=== PATIENT | male | born 1995 | race Caucasian/White ===

== ENCOUNTER 2019-11-21 15:07 | Emergency (ER) | payer SELFPAY, OTHER ==
[~2019-11-21] VITALS: Ht 182.9 cm; Wt 80.0 kg
[~2019-11-21 15:07] MED LIST: epiNEPHrine 0.1mg/ml 10ml syringe ONE; etomidate 2mg/ml inj. ONE; rocuronium 10mg/ml inj IV ONE
[2019-11-21] MEDS ORDERED: LORazepam 2 mg/ml vial ONE (15:11)
[2019-11-21] MEDS ORDERED: midazolam 100mg in NS 100ml 100 ML IV SCH (15:20)
[2019-11-21] MEDS ORDERED: FENTANYL-0.9 % NACL/PF 100 ML IV SCH (15:20)
[2019-11-21] MEDS ORDERED: NORepinephrine 8mg/ 250ml NS 250 ML IV SCH (15:20)
[2019-11-21] MEDS ORDERED: acetaminophen 650mg rectal suppository RC STA (15:33)
[2019-11-21] MEDS ORDERED: normal saline 1000ML IV soln IV ONE (15:35)
[2019-11-21] MEDS ORDERED: vancomycin/NS 1 GM ADD-VANTAGE 250 ML IV ONE (15:35)
[2019-11-21] MEDS ORDERED: piperacillin/tazo 3.375gm/50ml 50 ML IV ONE (15:35)
[2019-11-21 15:55] LABS: ABG BASE EXCESS -6.1 mmol/L (-2.0-2.0); ABG HCO3 19.4 mmol/L (22.0-26.0); ABG OXYGEN SATURATION 99.3 % (94-97); ABG PCO2 (T) 40.6 mmHg (35.0-48.0); ABG PO2 (T) 463.8 mmHg (75.0-100.0); ALLEN'S TEST POSITIVE; FCOHb 1.2 % (0.0-3.9); FMetHb 0.3 % (0.0-1.5); FO2Hb 97.8 % (94-97); PATIENT TEMPERATURE 38.4; PEEP 5 cm H2O; RESPIRATORY RATE 18 b/min; TIDAL VOLUME 450 mL; TOTAL HEMOGLOBIN 12.7 G/dl (14.0-18.0)
[2019-11-21 15:59] LABS: ALANINE AMINOTRANSFERASE 69 U/L (12-78); ALBUMIN 3.6 G/DL (3.4-5.0); ALBUMIN/GLOBULIN RATIO 1.2 (1.1-1.5); ALKALINE PHOSPHATASE 45 IU/L (46-116); ANION GAP 12 (8-16); ASPARTATE AMINO TRANSFERASE 172 U/L (10-37); BASOPHILS # (AUTO) 0.1 X10'3 (0-0.2); BASOPHILS % (AUTO) 0.7 % (0-1); BILIRUBIN,TOTAL 0.3 MG/DL (0.1-1.0); BLOOD UREA NITROGEN 21 MG/DL (7-18); BUN/CREATININE RATIO 7.6 (5.4-32.0); CALCIUM 8.1 MG/DL (8.5-10.1); CHLORIDE 109 MMOL/L (99-107); CREATININE 2.76 MG/DL (0.60-1.10); EOSINOPHILS # (AUTO) 0.1 X10'3 (0-0.9); EOSINOPHILS % (AUTO) 0.4 % (0-6); GLUCOSE 116 MG/DL (70-104); HEMATOCRIT 41.6 % (42.0-52.0); LYMPHOCYTES # (AUTO) 0.8 X10'3 (1.1-4.8); LYMPHOCYTES % (AUTO) 4.5 % (21-51); MEAN CORPUSCULAR HEMOGLOBIN 31.6 PG (27.0-31.0); MEAN CORPUSCULAR HGB CONC 33.5 g/dL (33.0-36.5); MEAN CORPUSCULAR VOLUME 94.4 FL (78-98); MEAN PLATELET VOLUME 8.3 FL (7.4-10.4); MONOCYTES # (AUTO) 0.6 X10'3 (0-0.9); MONOCYTES % (AUTO) 3.3 % (2-12); NEUTROPHILS # (AUTO) 16.4 X10'3 (1.8-7.7); NEUTROPHILS % (AUTO) 91.1 % (42-75); PLATELET COUNT 270 X10'3 (140-440); POTASSIUM 4.7 MMOL/L (3.5-5.1); RED BLOOD COUNT 4.41 X10'6 (4.70-6.10); RED CELL DISTRIBUTION WIDTH 12.8 % (11.5-14.5); SODIUM 144 MMOL/L (135-145); TOTAL CARBON DIOXIDE 22.6 MMOL/L (24-32); TOTAL PROTEIN 6.6 G/DL (6.4-8.2); eGFR 25 ML/MIN
[2019-11-21 16:07] LABS: MAGNESIUM 1.8 MG/DL (1.5-2.4)
[2019-11-21 16:08] LABS: ETHANOL < 0.010 GM/DL (0.0-0.010)
[2019-11-21 16:31] LABS: PLATELET ESTIMATE NORMAL; TOTAL CELLS COUNTED 100
[2019-11-21 16:34] LABS: CLARITY,URINE CLEAR (Clear); COLOR,URINE YELLOW (Yellow); GLUCOSE, URINE 100 mg/dl (Neg); KETONES,URINE NEGATIVE (Neg); LEUKOCYTE ESTERASE ,URINE NEGATIVE (Neg); NITRITES, URINE NEGATIVE (Neg); OCCULT BLOOD,URINE MODERATE (Neg); PROTEIN,URINE 30 mg/dl (Neg); UROBILINOGEN,URINE 0.2 E.U/dL (0.2-1.0)
[2019-11-21 16:41] LABS: UA COLLECTION TYPE FOLEY CATH
[2019-11-21 16:43] LABS: BACTERIA,URINE NONE SEEN /HPF (Neg); MUCUS STRANDS FEW /LPF (Neg); RBC,URINE 0-2 /HPF (0-2); SQUAMOUS EPITHELIAL CELL,UR FEW /LPF (FEW); WBC,URINE 0-4 /HPF (0-4)
[2019-11-21 16:45] LABS: URINE AMPHETAMINE SCREEN NEGATIVE (Neg); URINE BARBITUATE SCREEN NEGATIVE (Neg); URINE BENZODIAZEPINES SCREEN NEGATIVE (Neg); URINE CANNABINOID SCREEN NEGATIVE (Neg); URINE COCAINE SCREEN NEGATIVE (Neg); URINE METHADONE SCREEN NEGATIVE (Neg); URINE OPIATE SCREEN POSITIVE (Neg); URINE PHENCYCLIDINE SCREEN NEGATIVE (Neg)
[2019-11-21] MEDS ORDERED: UNABLE TO OBTAIN (17:12)
[2019-11-21] MEDS ORDERED: levetiracetam-NS 1000mg/100ml 100 ML IV ONE ×2 (17:20→17:45)
[2019-11-21] MEDS ORDERED: dexamethasone sod phosphate 10mg/ml inj IV STA (17:26)
[2019-11-21] MEDS ORDERED: dexamethasone sod phosphate 4mg/ml inj. IV STA (17:32)
[2019-11-21 18:08] LABS: ACETAMINOPHEN < 2.0 UG/ML (10-30)
[2019-11-21 19:05] LABS: CREATINE KINASE 4609 U/L (39-308)
[2019-11-21 19:20] LABS: GLUCOSE,CSF 83 MG/DL (40-75); TOTAL PROTEIN,CSF 60 MG/DL (15-45)
[2019-11-21 19:39] LABS: APPEARANCE,CSF CLEAR; CSF SUPERNATANT COLOR COLORLESS; CSF VOLUME 8 ML; TUBE# COUNTED 2
[2019-11-21 19:48] LABS: CSF RBC 2 /CU MM (0); CSF WBC CT 1 /CU MM (0-5); EOSINOPHILS,CSF 0 %; LYMPHOCYTES,CSF 100 % (40-80); MONOCYTES,CSF 0 % (15-45); NEUTRO,CSF 0 % (0-6)
--- NOTE | 2019-11-21 21:30 | NUR ---
While transporting to [place] pt. began to cough, ET tube suctioned by Chato NEGRON.
--- NOTE | 2019-11-21 21:46 | NUR ---
Pt. identified by old records, Alvarez GARCIA and Marcos GARCIA verified photo ID on file with hospital matches pt.
--- NOTE | 2019-11-21 22:08 | NUR ---
Per Dr. Martinez, minimum Fentanly rate 25mcg/hr and minimum Versed rate 0.5mg/hr
--- NOTE | 2019-11-21 22:58 | NUR ---
Pt. grimaces to painful stimuli, no purposeful movement. Pupils 3mm, sluggish, PERRL
[2019-11-22 00:39] LABS: ALBUMIN 3.2 G/DL (3.4-5.0); ANION GAP 8 (8-16); BLOOD UREA NITROGEN 28 MG/DL (7-18); BUN/CREATININE RATIO 14.5 (5.4-32.0); CALCIUM 7.6 MG/DL (8.5-10.1); CHLORIDE 114 MMOL/L (99-107); CREATININE 1.93 MG/DL (0.60-1.10); GLUCOSE 105 MG/DL (70-104); POTASSIUM 4.3 MMOL/L (3.5-5.1); SODIUM 145 MMOL/L (135-145); TOTAL CARBON DIOXIDE 22.8 MMOL/L (24-32); eGFR 43 ML/MIN
[2019-11-22 00:57] LABS: CREATINE KINASE 19167 U/L (39-308)
[2019-11-22] MEDS ORDERED: CefTRIAXone inj 2,000 MG in normal saline 100ml IV soln 100 ML IV SCH (01:00)
--- NOTE | 2019-11-22 01:11 | NUR ---
Urine in urometer is light jenna, urine in urine-bag is dark jenna to tea colored.
--- NOTE | 2019-11-22 01:17 | NUR ---
[place] [id number], discussed with Dr. Pagan, Dr. Pagan will be placing orders.
[2019-11-22] MEDS ORDERED: VANCOMYCIN 750MG IV in NS 250 ML IV ONE (01:35)
[2019-11-22] MEDS ORDERED: sodium bicarbonate (8.4%) inj. 150 MEQ in dextrose 5%-water 1,000 ML IV SCH (01:35)
[2019-11-22] MEDS ORDERED: niCARdipine I.V. 50 MG in normal saline 250ml IV soln 230 ML IV SCH (04:00)
[2019-11-22] MEDS ORDERED: niCARDipine-NS 40mg/200ml IVPB 200 ML IV SCH (04:03)
[2019-11-22] MEDS ORDERED: mannitol 20% (100GM) 500ml IV soln IV STA (04:05)
[2019-11-22 05:38] VITALS: BP 105/78
[2019-11-22] MEDS ORDERED: levetiracetam-NS 1000mg/100ml 100 ML IV SCH (06:00)
[2019-11-25 18:10] LABS: HSV 1 PCR Negative (Negative); HSV 2 PCR Negative (Negative)
== END 2019-11-22 05:47 | disposition short-term general hospital (02) ==
LOC: EDBD 15:07 → ER 15:07
DX: A41.9 Sepsis, unspecified organism (principal); G93.40 Encephalopathy, unspecified; R50.9 Fever, unspecified; J96.00 Acute respiratory failure, unspecified whether with hypoxia or hypercapnia; R00.0 Tachycardia, unspecified; R41.82 Altered mental status, unspecified
CPT/HCPCS: 31500; 36415; 36556; 36600; 62270; 70450; 71045; 71250; 72125; 74018; 74176; 80048; 80053; 80305; 80320; 80329; 81001; 82550; 82803; 82945; 83605; 83735; 84145; 84157; 84439; 84443; 85018; 85025; 85610; 87015; 87040; 87070; 87529; 87635; 89051; 93005; 96365; 96366; 96367; 96375; 96376; 99291; 99292; C9803; J0171; J0696; J1100; J1953; J2060; J2543; J3370; J7030; J7050; 94002; 94003; 94760; J3010

== ENCOUNTER 2020-06-07 10:22 | Emergency (ER) | payer MEDICAID, SELFPAY ==
[~2020-06-07] VITALS: Ht 177.8 cm; Wt 86.4 kg
[~2020-06-07 10:22] MED LIST changes: +UNABLE TO OBTAIN; -epiNEPHrine 0.1mg/ml 10ml syringe ONE; -etomidate 2mg/ml inj. ONE; -rocuronium 10mg/ml inj IV ONE
[2020-06-07 10:25] VITALS: BP 127/81
[2020-06-07 12:10] LABS: COLOR,URINE YELLOW (Yellow); GLUCOSE, URINE NEGATIVE (Neg); KETONES,URINE NEGATIVE (Neg); LEUKOCYTE ESTERASE ,URINE NEGATIVE (Neg); NITRITES, URINE NEGATIVE (Neg); OCCULT BLOOD,URINE NEGATIVE (Neg); PH,URINE 6.5 (4.8-8.0); PROTEIN,URINE NEGATIVE (Neg); UROBILINOGEN,URINE 0.2 E.U/dL (0.2-1.0)
[2020-06-07 12:11] LABS: BASOPHILS # (AUTO) 0.1 X10'3 (0-0.2); BASOPHILS % (AUTO) 0.8 % (0-1); EOSINOPHILS # (AUTO) 0.3 X10'3 (0-0.9); EOSINOPHILS % (AUTO) 3.6 % (0-6); HEMATOCRIT 40.2 % (42.0-52.0); HEMOGLOBIN 13.9 g/dl (14.0-17.9); LYMPHOCYTES # (AUTO) 2.3 X10'3 (1.1-4.8); LYMPHOCYTES % (AUTO) 29.1 % (21-51); MEAN CORPUSCULAR HEMOGLOBIN 30.9 PG (27.0-31.0); MEAN CORPUSCULAR HGB CONC 34.5 g/dL (33.0-36.5); MEAN CORPUSCULAR VOLUME 89.8 FL (78-98); MONOCYTES # (AUTO) 0.6 X10'3 (0-0.9); MONOCYTES % (AUTO) 7.6 % (2-12); NEUTROPHILS # (AUTO) 4.6 X10'3 (1.8-7.7); NEUTROPHILS % (AUTO) 58.9 % (42-75); PLATELET COUNT 328 X10'3 (140-440); RED BLOOD COUNT 4.48 X10'6 (4.70-6.10); RED CELL DISTRIBUTION WIDTH 12.7 % (11.5-14.5); WHITE BLOOD COUNT 7.9 X10'3 (4.5-11.0)
[2020-06-07 12:14] LABS: URINE AMPHETAMINE SCREEN NEGATIVE (Neg); URINE BARBITUATE SCREEN NEGATIVE (Neg); URINE BENZODIAZEPINES SCREEN NEGATIVE (Neg); URINE CANNABINOID SCREEN NEGATIVE (Neg); URINE COCAINE SCREEN NEGATIVE (Neg); URINE METHADONE SCREEN NEGATIVE (Neg); URINE OPIATE SCREEN NEGATIVE (Neg); URINE PHENCYCLIDINE SCREEN NEGATIVE (Neg)
[2020-06-07 12:20] LABS: ALANINE AMINOTRANSFERASE 20 U/L (12-78); ALBUMIN 3.6 G/DL (3.4-5.0); ALBUMIN/GLOBULIN RATIO 1.1 (1.1-1.5); ALKALINE PHOSPHATASE 63 IU/L (46-116); ANION GAP 4 (8-16); ASPARTATE AMINO TRANSFERASE 14 U/L (10-37); BILIRUBIN,TOTAL 0.3 MG/DL (0.1-1.0); BLOOD UREA NITROGEN 13 MG/DL (7-18); BUN/CREATININE RATIO 15.5 (5.4-32.0); CALCIUM 8.8 MG/DL (8.5-10.1); CHLORIDE 104 MMOL/L (99-107); CREATININE 0.84 MG/DL (0.60-1.10); GLUCOSE 82 MG/DL (70-104); POTASSIUM 3.6 MMOL/L (3.5-5.1); SODIUM 141 MMOL/L (135-145); TOTAL CARBON DIOXIDE 32.9 MMOL/L (24-32); eGFR > 90 ML/MIN
[2020-06-07 12:22] LABS: C-REACTIVE PROTEIN < 0.05 MG/DL (0.0-0.5)
[2020-06-07 12:28] LABS: CLARITY,URINE CLEAR (Clear); UA COLLECTION TYPE STRAIGHT CATH
[2020-06-07] MEDS ORDERED: ketorolac tromethamine 15mg/ml inj. IM ONE (14:00)
== END 2020-06-07 14:08 | disposition home or self-care (01) ==
LOC: ER 10:22
DX: M25.571 Pain in right ankle and joints of right foot (principal); G89.29 Other chronic pain; G62.9 Polyneuropathy, unspecified
CPT/HCPCS: 36415; 80053; 80305; 81003; 85025; 85651; 86140; 96372; 99284; J1885